=== PATIENT | female | born 1995 | race Caucasian/White ===

== ENCOUNTER 2021-03-24 03:30 | Emergency (ER) | payer MEDICAID ==
[~2021-03-24] VITALS: Ht 170.2 cm; Wt 81.8 kg
[~2021-03-24 03:30] MED LIST: NO HOME MEDS; ONDA4TAB12 PO; TRAZ-251 PO
[2021-03-24] MEDS ORDERED: LIDOcaine Viscous 15ml cup MM ONE (03:40)
[2021-03-24] MEDS ORDERED: sucralfate 1 gm tablet PO ONE (03:40)
[2021-03-24] MEDS ORDERED: mag hydrox/Alum hydrox/simeth 30ml oral suspension PO ONE (03:40)
[2021-03-24] MEDS ORDERED: sucralfate 1gm/10ml UD suspension PO SCH (03:55)
[2021-03-24] MEDS ORDERED: sucralfate 1gm/10ml UD suspension PO ONE (03:55)
[2021-03-24 04:17] VITALS: BP 104/58
== END 2021-03-24 04:20 | disposition home or self-care (01) ==
LOC: ER 03:30
DX: R10.13 Epigastric pain (principal); R11.2 Nausea with vomiting, unspecified; F12.90 Cannabis use, unspecified, uncomplicated; Z79.899 Other long term (current) drug therapy
CPT/HCPCS: 99283